=== PATIENT | female | born 2005 | race Caucasian/White ===

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

== ENCOUNTER 2025-01-09 08:16 | Inpatient (IN) | payer MEDICAID, OTHER ==
[~2025-01-09] VITALS: Ht 162.6 cm; Wt 61.4 kg
[~2025-01-09 08:16] MED LIST: ARIP5TAB37 PO; DIPH-1243 PO; DOCU-412 PO; DULO30CA62 PO; GABA-1181 PO; HYDR50CA7 PO; LORA10TA7 PO
[2025-01-09 08:26] VITALS: O2SAT 100
[2025-01-09 08:46] LABS: COVID AG,FIA SOURCE NASAL SWAB
[2025-01-09 09:17] LABS: SARS-COV2 (COVID) ANTIGEN,FIA Negative (Negative)
[2025-01-09] MEDS ORDERED: ZOLPIDEM TARTRATE 5 MG TABLET PO PRN (09:30)
[2025-01-09] MEDS ORDERED: ZOLPIDEM TARTRATE 10 MG TABLET PO PRN (09:30)
[2025-01-09 13:57] LABS: APPEARANCE,URINE HAZY (CLEAR); GLUCOSE, URINE (UA) NEGATIVE (NEGATIVE); LEUKOCYTE ESTERASE ,URINE SMALL (NEGATIVE); NITRATE,URINE NEGATIVE (NEGATIVE); OCCULT BLOOD,URINE NEGATIVE (NEGATIVE); PH,URINE DRUG SCREEN 6.0 (5.0-8.0); SPECIFIC GRAVITIY, URINE 1.031 (1.003-1.030)
[2025-01-09 14:03] LABS: ALCOHOL, URINE DRUG SCREEN NEGATIVE (NEGATIVE); AMPHET/METH SCREEN,URINE NEGATIVE (NEGATIVE); BARBITURATE SCREEN, URINE NEGATIVE (NEGATIVE); CANNABINOID SCREEN,URINE NEGATIVE (NEGATIVE); COCAINE SCREEN,URINE NEGATIVE (NEGATIVE); METHADONE SCREEN, URINE NEGATIVE (NEGATIVE)
[2025-01-09 14:08] LABS: SQUAMOUS EPITHELIAL CELL,UR Few /LPF (None Seen)
[2025-01-09] MEDS ORDERED: MAGNESIUM HYDROXIDE SUSPENSION 30 ML UDCUP PO PRN (16:00)
[2025-01-09] MEDS ORDERED: ONDANSETRON 4 MG TABLET PO PRN (16:00)
[2025-01-09] MEDS ORDERED: DOCUSATE SODIUM 100 MG CAPSULE PO PRN (16:00)
[2025-01-09] MEDS ORDERED: IBUPROFEN 400 MG TABLET PO PRN (16:00)
[2025-01-09] MEDS ORDERED: LOPERAMIDE HCL 2 MG CAPSULE PO PRN (16:00)
[2025-01-09] MEDS ORDERED: MAG HYDROX/ALUMINUM HYD/SIMETH ES 30 ML SUSPENSION UDCUP PO PRN (16:00)
[2025-01-09] MEDS ORDERED: ALBUTEROL SULFATE HFA 90 MCG/PUFF 8 GM INHALER IH PRN (16:00)
[2025-01-09] MEDS ORDERED: PETROLATUM,WHITE 28 GM JELLY TP PRN (16:00)
[2025-01-09] MEDS ORDERED: NICOTINE 14 MG/24 HOUR PATCH TD PRN (16:00)
[2025-01-09 16:56] VITALS: BP 108/76; PULSE 95; RESP 16; TEMP 98.6; O2SAT 100
[2025-01-09] MEDS ORDERED: INFLUENZA VIRUS VACCINE TVS (6MO+) 2025-26/PF 45 MCG/0.5 ML SYRINGE IM. ONE (17:30)
[2025-01-09 20:00] VITALS: BP 121/70; PULSE 97; RESP 16; TEMP 97.8; O2SAT 99
[2025-01-10 13:41] VITALS: BP 111/69; PULSE 83; RESP 18; TEMP 98.4; O2SAT 100
[2025-01-10 20:21] VITALS: BP 114/70; PULSE 86; RESP 17; TEMP 98.2; O2SAT 99
[2025-01-11 09:25] VITALS: BP 109/66; PULSE 98; RESP 16; TEMP 97.7; O2SAT 99
[2025-01-11 16:55] VITALS: BP 137/90; PULSE 120; RESP 19; TEMP 99.3; O2SAT 100
[2025-01-11] MEDS: ACETAMINOPHEN 325 MG TABLET PO PRN (16:58)
[2025-01-11] MEDS: GuaiFENesin/D-METHORPHAN [SUGAR-FREE] 200-20MG/10 ML SYRUP UDCUP PO PRN (17:55)
[2025-01-11] MEDS: LORATADINE 10 MG TABLET PO PRN (17:55)
[2025-01-11 19:00] VITALS: BP 110/78; PULSE 102; RESP 18; TEMP 97.9; O2SAT 100
[2025-01-11 21:27] VITALS: BP 111/72; PULSE 88; RESP 17; TEMP 98.2; O2SAT 99
[2025-01-12 08:10] VITALS: BP 115/79; PULSE 108; RESP 18; TEMP 98.2; O2SAT 100
[2025-01-12] MEDS ORDERED: FLUO-418 PO (12:39)
[2025-01-12] MEDS ORDERED: RISP-31 PO (12:39)
== END 2025-01-12 15:04 | disposition home or self-care (01) | DRG 761 ==
LOC: EMS 08:16 → 3EI 13:03
PROVIDERS: ADMIT Psychiatry & Neurology Psychiatry; ATTEND Psychiatry & Neurology Psychiatry
PROC: GZHZZZZ Group Psychotherapy (ICD-10-PCS; principal; 2025-01-09)
DX: F25.1 Schizoaffective disorder, depressive type (principal); R45.851 Suicidal ideations; Z20.822 Contact with and (suspected) exposure to COVID-19; F41.9 Anxiety disorder, unspecified; G47.00 Insomnia, unspecified; Z59.00 Homelessness unspecified; Z79.899 Other long term (current) drug therapy; Z81.8 Family history of other mental and behavioral disorders; Z91.51 Personal history of suicidal behavior
CPT/HCPCS: 80307; 81001; 99285